=== PATIENT | female | born 1975 | race Hispanic/Latino ===

== ENCOUNTER 2018-06-18 14:46 | Emergency (ER) | payer OTHER ==
[2018-06-18 16:15] VITALS: BP 116/76
== END 2018-06-18 16:15 | disposition home or self-care (01) ==
LOC: ED 14:46
DX: S61.211A Laceration without foreign body of left index finger without damage to nail, initial encounter (principal); E11.9 Type 2 diabetes mellitus without complications; W25.XXXA Contact with sharp glass, initial encounter; Y93.G1 Activity, food preparation and clean up

== ENCOUNTER 2018-06-26 10:41 | Emergency (ER) | payer MEDICAID ==
[2018-06-26 11:30] VITALS: BP 116/66
== END 2018-06-26 11:30 | disposition home or self-care (01) ==
LOC: ED 10:41
DX: S61.210D Laceration without foreign body of right index finger without damage to nail, subsequent encounter (principal); E11.9 Type 2 diabetes mellitus without complications; X58.XXXD Exposure to other specified factors, subsequent encounter

== ENCOUNTER 2023-12-28 06:28 | Emergency (ER) | payer SELFPAY ==
[2023-12-28] VITALS (7 sets, daily range): BP systolic 107–124; BP diastolic 67–78
[2023-12-28] MEDS ORDERED: IBUPROFEN 800 MG/TAB PO ONE (06:45)
[2023-12-28] MEDS ORDERED: ACETAMINOPHEN 500 MG TAB PO ONE (06:45)
[2023-12-28] MEDS ORDERED: METFORMIN HCL1000 MG PO (07:01)
[2023-12-28] MEDS ORDERED: GLIMEPIRIDE4 MG PO (07:02)
[2023-12-28] MEDS ORDERED: ATORVASTATIN CA20 MG PO (07:02)
[2023-12-28] MEDS ORDERED: HYDROXYCHLOROQ200 MG PO (07:02)
== END 2023-12-28 07:55 | disposition home or self-care (01) | DRG 914 ==
LOC: ED 06:28
DX: S99.912A Unspecified injury of left ankle, initial encounter (principal); E11.9 Type 2 diabetes mellitus without complications; X50.0XXA Overexertion from strenuous movement or load, initial encounter; Y92.009 Unspecified place in unspecified non-institutional (private) residence as the place of occurrence of the external cause; Z79.84 Long term (current) use of oral hypoglycemic drugs